=== PATIENT | female | born 1995 | race Caucasian/White ===

== ENCOUNTER → 2017-10-20 08:54 | Outpatient (CLI) | payer MEDICAID, SELFPAY ==
--- NOTE | 2017-10-20 | DI.US.S_ITS ---
PROCEDURE: US PELVIC COMPLETE INDICATIONS: FOLLOW UP ON OVARIAN CYSTS/LEFT ADNEXAL CYSTIC LES TECHNIQUE: Real-time scanning was performed of the pelvic organs, with image documentation. Additional endovaginal scanning was necessary due to incomplete visualization of the adnexal and endometrial structures by transabdominal scanning. COMPARISON: Outside Facility, RG, CT ABDOMEN/PELVIS WITHOUT CONTRAST, 09/19/2017, 5:13. FINDINGS: Transabdominal scanning: Limited scanning through the kidneys shows no hydronephrosis. No pathologic free abdominal or pelvic fluid. Endovaginal scanning: Uterus: Uterus is normal in size at 7.2 x 3.1 x 3.8 cm. The endometrium is not well-seen secondary to intrauterine device which is in expected position. Ovaries: Right ovary measures 4.8 x 3.9 x 4.2 cm and there are 2 simple right ovarian cyst largest measuring 3.6 x 3.5 x 3.5 cm. Left ovary is normal measuring 2.5 x 1.0 x 1.7 cm. Right paraovarian cyst also noted measuring roughly 12 mm. IMPRESSION: 1. 2 simple right ovarian cyst largest measuring up to 3.6 cm. 2. Right paraovarian cyst. 3. Intrauterine device in expected position. Dictated by: Enrrique ORR Interpreted: Da Deras MD on 10/20/2017 at 11:51 Approved by: Da Deras M.D. on 10/20/2017 at 13:03
== END ==
PROVIDERS: PCP Physician Assistant; Visit Provider Physician Assistant
DX: N83.291 Other ovarian cyst, right side (principal)
CPT/HCPCS: 76830; 76856

== ENCOUNTER → 2017-12-01 13:15 | Outpatient (CLI) | payer OTHER, MEDICAID, SELFPAY ==
--- NOTE | 2017-12-01 | DI.US.S_ITS ---
PROCEDURE: US PELVIC COMPLETE INDICATIONS: FOLLOW UP ON OVARIAN CYSTS/LEFT ADNEXAL CYST TECHNIQUE: Real-time scanning was performed of the pelvic organs, with image documentation. Additional endovaginal scanning was necessary due to incomplete visualization of the adnexal and endometrial structures by transabdominal scanning. COMPARISON: [facility], , US PELVIC COMPLETE, 10/20/2017, 9:34. FINDINGS: Transabdominal scanning: Limited scanning through the kidneys shows no hydronephrosis. The kidneys measure 10.3 CM right and 9.7 CM left. No pathologic free abdominal or pelvic fluid. The IUD is in the expected location. Endovaginal scanning: Uterus: Uterus is normal in size at 3.0 x 3.6 x 6.7 cm. The endometrium measures 3.0 mm in combined thickness. Ovaries: Right ovary measures 20 x 23 x 23 mm. There is a pedunculated simple cyst measuring 1.2 x 1.3 x 1.5 cm. The left ovary measures 31 x 42 x 43 mm and contains a new simple cyst that measures 2.9 x 3.8 x 4.0 cm. IMPRESSION: Normal uterus with IUD in position. A 4 cm simple cyst is present in the left ovary. Followup for less than 5 cm cyst not required. Dictated by: Parth Ludwig M.D. on 12/01/2017 at 14:42 Approved by: Parth Ludwig M.D. on 12/01/2017 at 14:46
== END ==
PROVIDERS: PCP Physician Assistant; Visit Provider Physician Assistant
DX: N83.292 Other ovarian cyst, left side (principal)
CPT/HCPCS: 76830; 76856

== ENCOUNTER → 2024-08-12 10:07 | Outpatient (CLI) | payer OTHER, SELFPAY ==
--- NOTE | 2024-08-12 10:13 | DI.RAD.S_ITS ---
PROCEDURE: XR THORACIC SPINE 3V INDICATIONS: BACK PAIN TECHNIQUE: 3 views of the thoracic spine were acquired. COMPARISON: None. FINDINGS: Bones: No fractures or dislocations. No suspicious bony lesions. 12 pairs of ribs are noted, and appear intact where visualized. Soft tissues: No paravertebral stripe thickening. IMPRESSION: No acute bony abnormality. Dictated by: John Lewis M.D. on 08/12/2024 at 10:45 Approved by: John Lewis M.D. on 08/12/2024 at 10:45
--- NOTE | 2024-08-12 10:13 | DI.RAD.S_ITS ---
PROCEDURE: XR LUMBAR SPINE 2-3V INDICATIONS: BACK PAIN TECHNIQUE: 3 views of the lumbar spine were acquired. COMPARISON: None. FINDINGS: Bones: 5 [id number] vertebrae are present. There is normal bony alignment. No vertebral body compression fractures. No suspicious bony lesions. Soft tissues: Overlying bowel gas pattern is normal. No suspicious soft tissue calcifications. IMPRESSION: No acute bony abnormality. Dictated by: John Lewis M.D. on 08/12/2024 at 10:44 Approved by: John Lewis M.D. on 08/12/2024 at 10:45
== END ==
PROVIDERS: PCP Family Medicine; Referring Provider Family Medicine; Visit Provider Family Medicine
DX: M54.9 Dorsalgia, unspecified (principal)
CPT/HCPCS: 72072; 72100